=== PATIENT | male | born 1985 | race Caucasian/White ===

== ENCOUNTER 2022-03-30 01:43 | Emergency (ER) | payer SELFPAY | END 2022-03-30 02:22 | disposition left against medical advice (07) | LOC: ER 01:43 → EDBD 01:43 → ER 02:20 | DX: T65.91XA Toxic effect of unspecified substance, accidental (unintentional), initial encounter (principal); R07.89 Other chest pain; Z53.21 Procedure and treatment not carried out due to patient leaving prior to being seen by health care provider; Y92.89 Other specified places as the place of occurrence of the external cause | CPT/HCPCS: 93005 ==